=== PATIENT | male | born 1965 | race Caucasian/White ===

== ENCOUNTER 2020-05-16 13:23 | Emergency (ER) | payer BC, OTHER ==
[~2020-05-16] VITALS: Ht 177.8 cm; Wt 93.2 kg
[2020-05-16 13:30] VITALS: TEMP 98.3
[2020-05-16] MEDS ORDERED: SYNTHROID 0.0.025 MG PO (13:46)
[2020-05-16] MEDS ORDERED: FLOMAX 0.40.4 MG/CAP PO (13:47)
[2020-05-16] MEDS ORDERED: LIPITOR20 MG PO (13:48)
[2020-05-16 14:00] LABS: BASO % 0.7 % (0.0-2.0); GRAN # 2.7 (1.4-6.5); GRAN % 64.7 % (42.2-75.2); HEMATOCRIT 41.5 % (42.0-52.0); HEMOGLOBIN 14.1 g/dl (13.5-18.0); LYMPH # 1.1 (1.2-3.4); MEAN CELL VOLUME 89 fl (80.0-100.0); MEAN CORPUSCULAR HEMOGLOBIN 30 pg (27.0-31.0); MEAN CORPUSCULAR HGB CONC 34 g/dl (33.0-37.0); MEAN PLATELET VOLUME 10.1 fl (7.4-10.4); MONO # 0.3 (0.1-0.6); MONO % 7.1 % (1.7-9.3); PLATELET COUNT 159 K/mm3 (130-400); RED BLOOD COUNT 4.65 M/mm3 (4.20-5.60); REDCELL DISTRIBUTION WIDTH-CV 12.6 % (11.5-14.5)
[2020-05-16 14:06] LABS: ALBUMIN 4.1 gm/dL (3.5-5.0); BILIRUBIN,TOTAL 0.8 mg/dL (0.0-1.0); CALCIUM 8.7 mg/dL (8.4-10.2); CREATININE, serum 0.86 (0.66-1.25); POTASSIUM 3.8 mmol/L (3.4-5.0)
[2020-05-16 14:18] LABS: COLLECTION METHOD CLEAN CATCH
[2020-05-16 14:25] LABS: PH 7 (5-8); SQUAMOUS EPITHELIAL 0-2 /hpf; URINE APPEARANCE Clear; URINE BACTERIA None Seen /hpf; URINE BILIRUBIN Negative (NEGATIVE); URINE BLOOD Negative (NEGATIVE); URINE COLOR Yellow; URINE GLUCOSE Negative (NEGATIVE); URINE KETONE Negative (NEGATIVE); URINE LEUKOCYTE ESTERASE Negative (NEGATIVE); URINE NITRATE Negative (NEGATIVE); URINE PROTEIN(semi-quant) Negative (NEGATIVE); URINE RBC 0-2 /hpf; URINE UROBILINOGEN Negative (NEGATIVE)
[2020-05-16 14:33] LABS: TRICYCLIC ANTIDEPRESS URINE NEGATIVE
[2020-05-16 14:37] LABS: TSH w REFLEX 3.17 uIU/mL (0.465-4.680)
[2020-05-16 15:46] VITALS: BP 133/76; PULSE 52
== END 2020-05-16 15:46 | disposition home or self-care (01) ==
LOC: COL.ER 13:23
PROVIDERS: Nurse Practitioner Primary Care
DX: R42 Dizziness and giddiness (principal); E78.5 Hyperlipidemia, unspecified; E03.9 Hypothyroidism, unspecified; Z90.89 Acquired absence of other organs; Z79.890 Hormone replacement therapy
CPT/HCPCS: J7030; Q9967

== ENCOUNTER 2024-07-08 10:11 | Day surgery (SDC) | payer OTHER ==
[~2024-07-08] VITALS: Ht 177.8 cm; Wt 94.8 kg
[~2024-07-08 10:11] MED LIST: FLOMAX 0.40.4 MG/CAP PO; LIPITOR20 MG PO; LR 1,000 ML IV SCH; SYNTHROID 0.0.025 MG PO
[2024-07-08] MEDS ORDERED: Lidocaine PF 2% (20 MG/ML) 5 ML VIAL ONE (10:47)
[2024-07-08] MEDS ORDERED: dexAMETHasone 10 MG/ML VIAL ONE (10:47)
[2024-07-08] MEDS ORDERED: Ondansetron 4 MG/2 ML VIAL ONE (10:47)
[2024-07-08] MEDS ORDERED: fentaNYL 50 MCG/ML 5 ML VIAL ONE (10:48)
[2024-07-08] MEDS ORDERED: Rocuronium 50 MG/5 ML Multi-Dose VIAL ONE ×2 (10:48→13:18)
[2024-07-08 11:42] VITALS: BP 133/74; PULSE 57; TEMP 97.2
[2024-07-08] MEDS ORDERED: Meperidine 50 MG/ML 1 ML VIAL IV PRN (12:00)
[2024-07-08] MEDS ORDERED: Ondansetron 4 MG/2 ML VIAL IV PRN (12:00)
[2024-07-08] MEDS ORDERED: hydrALAZINE 20 MG/ML 1 ML VIAL IV PRN (12:00)
[2024-07-08] MEDS ORDERED: Ketorolac 15 MG/ML VIAL IV PRN (12:00)
[2024-07-08] MEDS ORDERED: fentaNYL 50 MCG/ML 1 ML SYRINGE/VIAL [PACU/SDC ONLY] IV PRN (12:00)
[2024-07-08] MEDS ORDERED: HYDROmorphone 1 MG/1 ML SYRINGE [PACU/SDC ONLY] IV PRN (12:00)
[2024-07-08] MEDS ORDERED: fentaNYL 50 MCG/ML 2 ML VIAL ONE (14:41)
[2024-07-08] MEDS ORDERED: Topical Skin Adhesive 1 EACH (1 ML) TOP ONE (14:45)
[2024-07-08] MEDS ORDERED: Ketorolac 30 MG/ML VIAL ONE (14:47)
[2024-07-08] MEDS ORDERED: MOTRIN 600600 MG/TAB PO (14:58)
[2024-07-08] MEDS ORDERED: NORCO 325 MG-51 TAB PO (14:58)
[2024-07-08 15:30] VITALS: BP 127/67; PULSE 72; TEMP 97.6
[2024-07-08 15:45] VITALS: BP 118/74; PULSE 61
[2024-07-08 16:00] VITALS: BP 118/73; PULSE 61
[2024-07-08 16:15] VITALS: BP 123/68; PULSE 70
[2024-07-08 16:30] VITALS: BP 122/76; PULSE 71
--- NOTE | 2024-07-08 17:15 | NUR ---
1530- PT BACK FROM PACU TO [facility] VIA CART. MONITORS ON AND ALARMS SET. VSS. REPORT RECEIVED FROM JANE TAMAYO. CALL LIGHT WITHIN REACH. AT BEDSIDE. PT REQUESTED FOOD AND DRINK. 1545- PT TAKING FOOD AND DRINK WELL. NO OTHER NEEDS AT THIS TIME. 1615- PT RESTING IN BED TALKING ON THE PHONE. GETTING PAPERWORK READY. 1645- DISCHARGE PAPERWORK GIVEN WITH AT BEDSIDE. ALL QUESTIONS ANSWERED. 1705- PT TRANSFERRED OUT OF THE HOSPITAL VIA WHEELCHAIR TO OWN PERSONAL VEHICLE DRIVEN BY .
== END 2024-07-08 17:05 | disposition home or self-care (01) ==
LOC: SDCO 10:11
DX: K40.20 Bilateral inguinal hernia, without obstruction or gangrene, not specified as recurrent (principal); Z79.82 Long term (current) use of aspirin
CPT/HCPCS: C1781; J0690; J1100; J1885; J2405; J2704; J3010

== ENCOUNTER 2024-07-25 05:53 | Day surgery (SDC) | payer OTHER ==
[~2024-07-25] VITALS: Ht 177.8 cm; Wt 96.6 kg
[~2024-07-25 05:53] MED LIST changes: +MOTRIN 600600 MG/TAB PO; +NORCO 325 MG-51 TAB PO
[2024-07-25] MEDS ORDERED: fentaNYL 50 MCG/ML 2 ML VIAL ONE ×2 (06:57→08:42)
[2024-07-25] MEDS ORDERED: dexAMETHasone 10 MG/ML VIAL ONE (06:57)
[2024-07-25] MEDS ORDERED: NS 10 ML IV ONE (06:57)
[2024-07-25] MEDS ORDERED: Ketorolac 30 MG/ML VIAL ONE (06:57)
[2024-07-25] MEDS ORDERED: Ondansetron 4 MG/2 ML VIAL ONE (06:57)
[2024-07-25] MEDS ORDERED: TIROSINT100 MC1 PO (07:15)
[2024-07-25] MEDS ORDERED: Meperidine 50 MG/ML 1 ML VIAL IV PRN (07:30)
[2024-07-25] MEDS ORDERED: Ondansetron 4 MG/2 ML VIAL IV PRN ×2 (07:30→10:30)
[2024-07-25] MEDS ORDERED: hydrALAZINE 20 MG/ML 1 ML VIAL IV PRN (07:30)
[2024-07-25] MEDS ORDERED: HYDROmorphone 1 MG/1 ML SYRINGE [PACU/SDC ONLY] IV PRN (07:30)
[2024-07-25] MEDS ORDERED: droPERidol 2.5 MG/ML 2 ML VIAL IV PRN (07:30)
[2024-07-25] MEDS ORDERED: fentaNYL 50 MCG/ML 1 ML SYRINGE/VIAL [PACU/SDC ONLY] IV PRN ×2 (07:30)
[2024-07-25 08:06] VITALS: BP 122/69; PULSE 54; TEMP 97.9
[2024-07-25] MEDS ORDERED: BUPivacaine PF 0.5% w EPI (1:200,000) 10 ML VIAL IJ ONE ×2 (08:30)
[2024-07-25] MEDS ORDERED: Topical Skin Adhesive 1 EACH (1 ML) TOP ONE (08:30)
[2024-07-25 09:50] VITALS: BP 126/85; PULSE 53; TEMP 97.3
--- NOTE | 2024-07-25 09:50 | NUR ---
PATIENT RETURNED TO BAY 6, ALERT AND ORIENTED X3. DENIES PAIN, NAUSEA AND SHORTNESS OF BREATH. BREATHING REGULAR AND UNLABORED ON ROOM AIR. SKIN WARM AND DRY. NURSE HANDOFF COMPLETED IN ROOM WITH INSPECTION OF SURICAL INCISION. INCISION SUPERIOR TO UMBILICUS WITH SKIN GLUE CLOSURE. SKIN GLUE CLEAN, DRY AND INTACT. SURROUNDING SKIN CLEAN, DRY AND INTACT. PATIENT HAS NO COMPLAINTS. SEE CHART FOR VITAL SIGNS. PATIENT HAD GRAPE JUICE AND BUD CRACKERS. NO DYSPHAGIA. CALL LIGHT IN REACH.
[2024-07-25 10:00] VITALS: BP 116/82; PULSE 57
[2024-07-25 10:15] VITALS: BP 123/82; PULSE 56
[2024-07-25 10:30] VITALS: BP 120/81; PULSE 58
[2024-07-25] MEDS ORDERED: Acetaminophen 325 MG TAB PO PRN (10:30)
[2024-07-25 10:45] VITALS: BP 118/78; PULSE 60
--- NOTE | 2024-07-25 10:55 | NUR ---
1048: DISCHARGE TEACHING COMPLETED WITH PRINTED EDUCATION AND INSTRUCTIONS SENT HOME WITH PATIENT AND SPOUSE. BOTH VERBALIZED UNDERSTANDING OF INSTRUCTIONS/EDUCATION. 1050: PATIENT AMBULATED TO RESTROOM WITH STEADY GAIT AND VOIDED. 1053: DENIES PAIN, NAUSEA AND SHORTNESS OF BREATH. SURGICAL INCISION CLEAN AND DRY WITH SKIN GLUE INTACT. IV REMOVED. GAUZE AND COBAN PLACED OVER SITE. 1055: PATIENT DISCHARGED HOME WITH TRANSPORT.
== END 2024-07-25 10:55 | disposition home or self-care (01) ==
LOC: SDCO 05:53
DX: K42.9 Umbilical hernia without obstruction or gangrene (principal); Z79.82 Long term (current) use of aspirin
CPT/HCPCS: C1781; J0690; J1100; J1885; J2405; J2704; J3010; J7120

== ENCOUNTER → 2024-08-15 | Outpatient (CLI) | payer OTHER ==
[~2024-08-15] MED LIST changes: -LR 1,000 ML IV SCH; +TIROSINT100 MC1 PO
== END ==
LOC: COL.RAD 14:28
DX: R10.31 Right lower quadrant pain (principal); R10.32 Left lower quadrant pain; Z98.890 Other specified postprocedural states